=== PATIENT | male | born 1960 | race Caucasian/White ===

== ENCOUNTER → 2020-09-03 | Outpatient (CLI) | payer OTHER ==
[2014-08-31 11:04] VITALS: BP 145/77
[~2020-09-03] MED LIST: FLEXERIL10 MG PO; FLUOXETINE HYDR10 MG PO; NAPROXEN500 MG PO; NASACORT55 MCG/ACT NS; NORCO 325 MG-51 TA1 PO; ZYRTEC ALLERGY10 MG PO
== END ==
LOC: RAD 10:50
DX: R10.829 Rebound abdominal tenderness, unspecified site (principal)

== ENCOUNTER → 2022-01-11 | Outpatient (CLI) | payer BC | LOC: RAD 10:06 | DX: M19.011 Primary osteoarthritis, right shoulder (principal); M75.21 Bicipital tendinitis, right shoulder ==